=== PATIENT | male | born 1965 | race Caucasian/White ===

== ENCOUNTER → 2018-10-03 | Outpatient (CLI) | payer OTHER | LOC: FIMAGING 16:41 | PROVIDERS: ATTEND Internal Medicine Hematology & Oncology | DX: C79.51 Secondary malignant neoplasm of bone (principal); M89.8X8 Other specified disorders of bone, other site; C61 Malignant neoplasm of prostate ==

== ENCOUNTER 2018-10-17 09:44 | Day surgery (SDC) | payer OTHER ==
[2018-10-17] MEDS ORDERED: FLUMAZENIL 0.5 MG/5 ML MDV IVP PRN (09:54)
[2018-10-17] MEDS ORDERED: MIDAZOLAM 2 MG/2 ML VIAL IVP PRN (09:54)
[2018-10-17] MEDS ORDERED: fentaNYL 100 MCG/2 ML INJ IVP PRN (09:54)
[2018-10-17] MEDS ORDERED: NALOXONE HCL 0.4 MG/ML INJ IVP PRN (09:54)
[2018-10-17] MEDS ORDERED: NS 1,000 ML IV SCH (10:00)
[2018-10-17 10:37] LABS: INR 1.1 (0.83-1.16); PROTIME(PATIENT) 13.8 SEC (12.0-15.0)
[2018-10-17] MEDS ORDERED: FLUMAZENIL 0.5 MG/5 ML MDV IVP ONE (10:46)
[2018-10-17] MEDS ORDERED: NALOXONE HCL 0.4 MG/ML INJ ONE (10:46)
[2018-10-17] MEDS ORDERED: MIDAZOLAM 2 MG/2 ML VIAL ONE ×2 (10:47→11:57)
[2018-10-17] MEDS ORDERED: fentaNYL 100 MCG/2 ML INJ ONE (10:47)
[2018-10-17] MEDS ORDERED: LIDOCAINE 1% 300 MG/30 ML SDV ONE (11:43)
--- NOTE | 2018-10-17 12:29 | PDRADPRE ---
Radiology History & Physical Indication for procedure: cancer Home medications: Casodex (*) 50 mg PO DAILY 10/12/18 [Last Taken 10/16/18] Fish Oil 1,000 mg Softgel 1,000 mg PO DAILY 10/12/18 [Last Taken Unknown] Ibuprofen 400 mg PO PRN 10/12/18 [Last Taken Unknown] Allergies/Adverse Reactions: No Known Allergies Allergy (Unverified 10/12/18 18:51) Mental status: A&Ox3
--- NOTE | 2018-10-17 12:29 | PDRADPN ---
Radiology Procedure Note Date of Procedure: 10/17/18 Radiologist: Angela Quiroz Anesthesia: IV Sedation Pre-op Diagnosis: RP nodes Post-op Diagnosis: same Procedure: CT guided biopsy of left RP node Inf/Abcess present in the surg proc area at time of surgery?: No
--- NOTE | 2018-10-17 12:29 | PDPROPOC ---
Sedation Plan of Care ASA Classification: ASA 3 Mallampati Score: Class 2 Mallampati Reference Image:
[2018-10-17] MEDS ORDERED: ONDANSETRON 4 MG/2 ML VIAL IVP PRN (12:30)
[2018-10-17] MEDS ORDERED: ACETAMINOPHEN 325 MG TAB PO PRN (12:30)
[2018-10-17 13:32] VITALS: BP 120/88
== END 2018-10-17 13:34 | disposition home or self-care (01) ==
LOC: FIMAGING 09:44
PROVIDERS: ATTEND Radiology Diagnostic Radiology
PROC: BW201ZZ Computerized Tomography (CT Scan) of Abdomen using Low Osmolar Contrast (ICD-10-PCS; principal; 2018-10-17 12:39)
PROC: 0WBH3ZX Excision of Retroperitoneum, Percutaneous Approach, Diagnostic (ICD-10-PCS; principal; 2018-10-17 12:39)
DX: C77.2 Secondary and unspecified malignant neoplasm of intra-abdominal lymph nodes (principal); C61 Malignant neoplasm of prostate; C79.51 Secondary malignant neoplasm of bone
CPT/HCPCS: J2250; J2310; J3010

== ENCOUNTER 2018-11-02 19:17 | Inpatient (IN) | payer OTHER ==
--- NOTE | 2018-11-02 19:34 | EDPHY ---
H & P Stated Complaint: fever since yesterday- chemo IV last week Time Seen by Provider: 11/02/18 19:33 HPI/ROS: CHIEF COMPLAINT: Neutropenic fever HISTORY OF PRESENT ILLNESS: The patient is currently receiving chemotherapy for prostate cancer presents the ED with a 2 day history of fever to 101 degrees. The patient was noted to be neutropenic based upon laboratory testing performed yesterday. The patient denies any cough or congestion. He does have some urinary frequency he attributes to increased oral intake. He denies any abdominal pain, vomiting or rash. The patient has no complaints of acute pain. REVIEW OF SYSTEMS: A comprehensive 10 point review of systems is otherwise negative aside from elements mentioned in the history of present illness. Source: Patient Exam Limitations: No limitations - Personal History Current Tetanus/Diphtheria Vaccine: Yes Current Tetanus Diphtheria and Acellular Pertussis (TDAP): Yes - Medical/Surgical History Hx Asthma: No Hx Chronic Respiratory Disease: No Hx Diabetes: No Hx Cardiac Disease: No Hx Renal Disease: No Hx Cirrhosis: No Hx Alcoholism: No Hx HIV/AIDS: No Hx Splenectomy or Spleen Trauma: No Other PMH: prostate cancer - Social History Smoking Status: Never smoked - Physical Exam Exam: General Appearance: Alert, no distress Eyes: Pupils equal and round no pallor or injection ENT, Mouth: Mucous membranes moist Respiratory: There are no retractions, lungs are clear to auscultation Cardiovascular: Regular rate and rhythm Gastrointestinal: Abdomen is soft and nontender, no masses, bowel sounds normal Neurological: 5/5 strength noted all 4 extremities Skin: Warm and dry, no rashes Musculoskeletal: Neck is supple nontender Extremities: symmetrical, full range of motion Psychiatric: Patient is oriented X 3, there is no agitation Constitutional: Initial Vital Signs Temperature (C) 38.2 C 11/02/18 19:18 Heart Rate 93 11/02/18 19:18 Respiratory Rate 16 11/02/18 19:18 Blood Pressure 144/88 H 11/02/18 19:18 O2 Sat (%) 94 11/02/18 19:18 O2 Delivery Mode Room Air Allergies/Adverse Reactions: No Known Allergies Allergy (Verified 11/02/18 19:22) Home Medications: Medication Instructions Recorded NK [No Known Home Meds] 11/02/18 Medical Decision Making ED Course/Re-evaluation: Patient had an IV established. Screening lab studies and blood cultures have been obtained. Urinalysis has been ordered. I reviewed the patient's laboratory studies from yesterday which do demonstrate neutropenia. The patient does have a fever in the emergency department today. There are no obvious signs of a bacterial infection noted on exam. The patient has a reassuring lactic acid. The patient will be admitted to the hospital for neutropenic fever. The patient was given cefepime in the emergency department. Urinalysis is pending at this point time. Consultation is made with Dr. Clifford from the hospitalist service who will admit the patient this evening. Differential Diagnosis: Differential diagnosis considered includes neutropenic fever, viral syndrome, pneumonia, urinary tract infection - Data Points Laboratory Results: Laboratory Results 11/02/18 19:50 11/02/18 19:50 11/02/18 11/02/18 11/02/18 19:50 19:50 19:50 WBC REJ RBC TNP Hgb TNP Hct TNP MCV TNP MCH TNP MCHC TNP RDW TNP Plt Count TNP MPV TNP Neut % (Auto) TNP Lymph % (Auto) TNP [place] % (Auto) TNP Eos % (Auto) TNP Baso % (Auto) TNP Nucleat RBC Rel Count TNP Absolute Neuts (auto) TNP Absolute Lymphs (auto) TNP Absolute Monos (auto) TNP Absolute Eos (auto) TNP Absolute Basos (auto) TNP Absolute Nucleated RBC TNP Immature Gran % TNP Immature Gran # TNP VBG Lactic Acid 0.7 mmol/L mmol/L (0.7-2.1) Sodium 136 mEq/L mEq/L (135-145) Potassium 4.2 mEq/L mEq/L (3.5-5.2) Chloride 105 mEq/L mEq/L (97-110) Carbon Dioxide 22 mEq/l mEq/l (22-31) Anion Gap 9 mEq/L mEq/L (6-14) BUN 12 mg/dL mg/dL (7-23) Creatinine 0.8 mg/dL mg/dL (0.7-1.3) Estimated GFR > 60 Glucose 98 mg/dL mg/dL (70-100) Calcium 9.3 mg/dL mg/dL (8.5-10.4) Departure - Departure Disposition: [facility] Acute Clinical Impression: Neutropenic fever, Prostate cancer Condition: Good
[2018-11-02] MEDS ORDERED: CEFEPIME HCL 2 GM in NS 100 ML IV ONE (20:30)
[2018-11-02 20:53] LABS: PLATELET COUNT 192 10^3/uL (150-400)
[2018-11-02] MEDS ORDERED: ONDANSETRON 4 MG/2 ML VIAL IVP PRN (21:34)
[2018-11-02] MEDS ORDERED: ONDANSETRON DISINTEGRATING 4 MG TAB PO PRN (21:34)
[2018-11-03] MEDS ORDERED: NS 1,000 ML IV SCH (04:30)
[2018-11-03] MEDS: CEFEPIME HCL 2 GM in NS 100 ML IV SCH ×3 (04:41→20:19)
[2018-11-03] MEDS: ACETAMINOPHEN 325 MG TAB PO PRN ×2 (04:42→20:00)
--- NOTE | 2018-11-03 05:24 | GHP ---
[f rep st] HISTORY AND PHYSICAL DATE OF ADMISSION: 11/02/2018 SOURCE: The patient provides history, appears reliable. EMR was reviewed and case discussed with [facility] hospitalist. CHIEF COMPLAINT: Fever. HISTORY OF PRESENT ILLNESS: This is a very pleasant 52-year-old gentleman who goes by the name of Soraya monroy, with past medical history significant for prostate cancer. He is followed by Dr. Tirado and skyler gracia underwent his first of 5 chemo treatments approximately a week and half ago. He reports that Wed or the day before, he presented to the emergency department. He was experiencing fevers. The p atient denied any rashes, sores, sore throat, rhinorrhea, congestion, cough, shortness of breath, dys uria, hematuria, diarrhea, but he did note that he was experiencing a little bit of rectal discomfort and a minimal amount of blood when he wiped. The patient denies any known sick contacts. Given his elevated fever, he presented to the emergency department for further evaluation. The patient was st arted on cefepime in the emergency department, and blood cultures are pending. REVIEW OF SYSTEMS: Ten systems reviewed, negative, except as noted above. ALLERGIES: No known drug allergies. HOME MEDICATIONS: Multivitamin, Flexeril, chondroitin, chemotherapy every 3 weeks, including docetax el and androgen deprivation therapy with Lupron injections every 3 months ago. Bicalutamide was disc ontinued 11/01/2018. Calcium with vitamin D. PAST MEDICAL HISTORY: Significant for prostate cancer. PAST SURGICAL HISTORY: The patient denies. FAMILY HISTORY: Negative for prostate disease or cancer. Aunts with high blood pressure. No family members with diabetes. Father did have a history of IBS. SOCIAL HISTORY: The patient is . He does not drink or smoke. He does utilize some occasiona l CBD oil. CODE STATUS: Full. PHYSICAL EXAMINATION: VITAL SIGNS: Upon arrival to the emergency department, blood pressure is 144/ 88, heart rate 93, respiratory rate 16, O2 sat 96% on room air, and temperature 38.2. Current vitals available, blood pressure is 132/87, heart rate 93, respiratory rate 16, O2 sat 94% on room air, tem perature 37.8. GENERAL: No acute distress. Very pleasant adult gentleman who is resting quietly in bed. He is awake. Does appear fatigued. During the interview, the patient does become flushed and slightly diaphoretic, complaining of feeling hot, at which time, his temperature was taken and found to be 100.0 with a rise in heart rate into the 90s. HEAD: Normocephalic, atraumatic. EYES: Extra ocular muscles are grossly intact. Pupils equal, round, slightly decreased reactivity to light bilat erally, but symmetric. No scleral icterus or conjunctival injection. ENT: Mucous membranes are abimael st. No oropharyngeal erythema or exudates. Dentition is intact. NECK: Supple. Trachea midline. CV: Regular rate. Slightly tachycardic in the 90s. Irregular rhythm. No murmurs, rubs or gallops appreciated. ABDOMEN: Positive bowel sounds. Soft, nontender to palpation. No rebound, guarding. No masses appreciated. : No suprapubic tenderness to palpation. No Kieth catheter in place. No rmal external male genitalia. Rectal: The patient was reporting significant discomfort, asks for as sessment of any potential rectal lesions. Without any invasive evaluation, I did find that the patie nt did have a small to moderate-sized external hemorrhoid that did not have any surrounding erythema or evidence of hyperemia. MUSCULOSKELETAL: Strength intact. The patient sits up and moves all extr emities independently. Strength 5/5 grossly. NEURO: Grossly nonfocal. No facial drooping. Moves all extremities as noted above. PSYCH: Thought process, content, and questions are appropriate. Th e patient is quite pleasant and cooperative. The patient is awake, alert, and oriented x3. LABORATORY STUDIES: CBC from 11/01/2018, WBCs 0.75, H and H 13.8 and 40.3, MCV of 86.9, platelet cou nt is 188, neutrophil percent 10.7, lymphocyte percent 78.7. Repeat CBC in the emergency department, WBCs 0.61 with absolute neutrophil 0.01, H and H 13.8 and 41.7, platelet count is 192. Lactic acid 0.7. Chemistry: Sodium is 137, potassium 4.2, chloride is 102, CO2 is 27, BUN is 13, creatinine is 0.8, GFR greater than 60, glucose is 88, calcium is 9.4, total bili is 0.3, ALT is 31, AST is 28, alk phos is 263, total protein 6.7, albumin 3.7. Previous PSA screens 10/01/2018, was 228, and on 10/24, was 109.0. UA: Specific gravity 1.003, pH of 7.0, all negative. ASSESSMENT AND PLAN: A pleasant 52-year-old gentleman with a history of prostate cancer, undergoing chemotherapy, followed by Dr. Tirado, who presents to the emergency department with complaints of 24 h ours of fever. 1. Neutropenic fever: The patient has been placed on neutropenic precautions. Blood cultures are p ending. The patient was started on cefepime per neutropenic fever protocol. The patient continues t o spike temperatures. Oncology consultation this morning as per day team. By history, no suggestion of a source for the patient's fever at this time. He does complain of some rectal discomfort with b owel movements and sitting. He does have a small external hemorrhoid present. No evidence of surrou nding edema or potential perirectal abscess, but we will need to monitor closely. Preparation-H has been ordered p.r.n. 2. Fluid, electrolytes, nutrition: The patient has been tolerating oral hydration, but complains th at he is feeling a little bit dry. We will add a liter of fluid. Blood pressures are adequate at th is time. Electrolytes will be monitored and replaced if needed. 3. Code status: Full. 4. Disposition: The patient admitted to inpatient status on the medical/surgical floor. Anticipati ng greater than 2-midnight stay pending blood cultures and treatment response. /[id number]/MODL
[2018-11-03 05:26] LABS: PLATELET COUNT 195 10^3/uL (150-400)
[2018-11-03] MEDS: ENOXAPARIN 40 MG/0.4 ML SYR SC SCH (09:41)
--- NOTE | 2018-11-03 11:29 | ASMTCMCOM ---
CM Note CM Note Notes: Patient admitted with neutropenic fever in setting of first chemo tx 9 days ago. Hx of prostate cancer, followed by Dr Tirado. He lives with his and is otherwise independent. No therapies have been ordered, and I anticipate d/c home with no needs. CM available if this changes. Date Signed: 11/03/2018 11:28 AM Electronically Signed By:Sonia Galvan RN
[2018-11-03] MEDS: POLYETHYLENE GLYCOL 3350 17 GM PKT PO PRN (12:47)
[2018-11-03] MEDS: FILGRASTIM-SNDZ 480 MCG/0.8 ML SYR SC SCH (12:48)
--- NOTE | 2018-11-03 13:06 | GCON ---
[f rep st] CONSULTATION NEW PATIENT MEDICAL ONCOLOGY CONSULTATION REFERRING PHYSICIAN: Sally Carvalho MD PRIMARY ONCOLOGIST: Dr. Lexy Tirado REASON FOR CONSULTATION: Patient with metastatic prostate cancer currently on chemotherapy, admitted with neutropenic fever. HISTORY OF PRESENT ILLNESS: The patient is a very pleasant 52-year-old gentleman who was diagnosed with de Naheed metastatic prostate cancer on 2018. The patient reports he was having some right hip pain, which led to an MRI that showed significant bony metastasis, as well as retroperitoneal lymphadenopathy and abnormal prostate. He had a biopsy of a retroperitoneal lymph node showing metastatic prostate adenocarcinoma. PSA of 109 on 10/24/2018. Subsequently, the patient has been diagnosed with widespread disease, primarily bony involvement. He was started on LHRH agonist, as well as docetaxel on 10/25. Patient was seen in clinic on 11/01/2018, noted to have an ANC of 88, was not started on prophylactic antibiotics, but since that time, he has noted fevers up to 101. The patient called me last night to discuss the fevers. He reported some chills, but denied any infectious symptoms, specifically no mouth sores, no cough, no shortness of breath, no abdominal pain, diarrhea, or dysuria. I instructed him to come into the ER for evaluation. In the ER, he was noted to be neutropenic with an ANC of 0. He was started on cefepime, IV fluids, and admitted to the hospital. Patient has had blood cultures, which are pending, urinalysis, which was negative. CBC shows no anemia or thrombocytopenia. Creatinine and electrolytes have been unremarkable. I will note that the patient did not receive growth factor with his most recent chemotherapy. REVIEW OF SYSTEMS: Otherwise, the patient reports chronic right hip pain, which is somewhat improved. He again denies infectious symptoms today and reports no other pain. He does report feeling less weak than he did yesterday. PAST MEDICAL HISTORY: None additional. HOME MEDICATIONS: Have been reviewed. PAST SURGICAL HISTORY: Denies. FAMILY HISTORY: Negative for any cancer. He is currently pending genetic counseling. SOCIAL HISTORY: . He has an [id number] son. He does not drink or smoke. PHYSICAL EXAM: VITAL SIGNS: Today shows blood pressure 120/79, heart rate 79, O2 saturation 95% on room air with respiratory rate of 16. His temp is currently 36 8. GENERAL: A 52-year-old gentleman, looks his stated age, not in acute distress. HEENT: Anicteric sclerae. Oropharynx is clear. NECK: Supple. HEART: Regular rate and rhythm. LUNGS: Clear to auscultation bilaterally. ABDOMEN: Soft. No enlarged liver or spleen. LOWER EXTREMITIES: No edema. No focal bony tenderness. LABORATORY DATA: Labs today again show an ANC of 0. Creatinine is 0.8. ASSESSMENT AND PLAN: A 52-year-old gentleman with de Naheed stage IV metastatic prostate cancer. Based on imaging I have reviewed today, he has diffuse bony metastatic disease. The patient was admitted with neutropenic fever, status post first cycle of Lupron and docetaxel given on 10/25/2018. He did not receive growth factor. Patient is doing well today on intravenous antibiotics. We will continue cefepime. I am going to add G-CSF with Zarxio daily hoping to expedite the rise in white blood cell count so we can transition him to oral antibiotics. His blood cultures are currently pending, but no etiology for fever has been discovered at this time. He denies any new pain. Notably, patient is pending genetic counseling to evaluate for underlying germ line mutation. Dr. Tirado is also planning bone health agent sooner than later despite lack of data with hormone sensitive disease. Dr. Tirado is worried about impending fracture, especially in the hip. Fortunately, patient is not having any pain at this time. We will continue to follow throughout this hospital stay. More than 30 minutes was spent with patient, more than 50% of time counseling, coordinating care. Will discuss with Dr. Carvalho. /[id number]/MODL MTDD
[2018-11-03] MEDS ORDERED: LORazepam 0.5 MG TAB PO PRN (16:38)
--- NOTE | 2018-11-03 16:51 | HOSPPROG ---
Hospitalist Progress Note Assessment/Plan: * Neutropenic fever -IV Cefpime -G-CSF per oncology * Metastatic prostate cancer -d/w Dr. Reyes - oncology to consult * Hip met -at risk for pathologic fracture - currently no pain Subjective: No new complaints Objective: Vital Signs Temp Pulse Resp BP Pulse Ox 37.3 C 89 16 148/92 H 96 11/03/18 15:48 11/03/18 15:48 11/03/18 15:48 11/03/18 15:48 11/03/18 15:48 Laboratory Results 11/03/18 05:04 11/03/18 05:04 11/02/18 11/03/18 11/04/18 05:59 05:59 05:59 Intake Total 350 Balance 350 - Physical Exam Constitutional: no apparent distress, appears nourished, not in pain Cardiovascular: regular rate and rhythym, no murmur, rub, or gallop Respiratory: no respiratory distress, no rales or rhonchi, clear to auscultation Gastrointestinal: normoactive bowel sounds, soft, non-tender abdomen, no palpable masses Skin: no rashes or abrasions, no fluctuance, no induration Neurologic: AAOx3, sensation intact bilaterally Psychiatric: interacting appropriately, not anxious, not encephalopathic, thought process linear ICD10 Worksheet Patient Problems: Problems Problem Status Onset Neutropenic fever Acute Prostate cancer Acute
--- NOTE | 2018-11-03 18:17 | PDMN ---
Medical Necessity Medical necessity: Change to inpt on 11/03/18, meets inpt criteria per MD order and Medical Oncology GRG, 52 y/o w/prostate cancer, undergoing chemo admitted w/ neutropenic fever, ANC of 0 in ED, WBC's 0.61 upon admission, started on cefepime per neutropenic fever protocol, IVF, Onc consult: imaging shows diffuse bony metastatic disease, anticipate>2MN for ongoing management of above.
[2018-11-03] MEDS: PREPARATION H 51 GM CRTUBE PR PRN (19:59)
[2018-11-04] MEDS: ACETAMINOPHEN 325 MG TAB PO PRN ×2 (01:18→20:01)
[2018-11-04] MEDS: CEFEPIME HCL 2 GM in NS 100 ML IV SCH ×3 (04:51→20:00)
[2018-11-04] MEDS: traMADol 50 MG TAB PO PRN ×2 (05:23→13:37)
[2018-11-04 05:25] LABS: PLATELET COUNT 168 10^3/uL (150-400)
[2018-11-04] MEDS: ENOXAPARIN 40 MG/0.4 ML SYR SC SCH (09:37)
[2018-11-04] MEDS: POLYETHYLENE GLYCOL 3350 17 GM PKT PO PRN (09:37)
[2018-11-04] MEDS: PREPARATION H 51 GM CRTUBE PR PRN (09:39)
--- NOTE | 2018-11-04 11:37 | SOAPPROG ---
SOAP Progress Note Assessment/Plan: Assessment/Plan: 52 yo w de yair metastatic prostate cancer admitted w neutropenic fever s/p C1 Lupron/docetaxel 10/25/2018 1. Neutropenic fever - afebrile yesterday and no fever today infectious w/u negative thus far Blood cultures negative ANC still 0 but monocytes increasing so likely myelosuppression recovering Cont IV abx and observation for now If afebrile tomorrow and ANC improving, could possibly discharge 2. Stage IV prostate ca - C1 Lupron + taxotere 10/25 will need growth factor added to regimen genetic testing pending 11/04/18 11:33 11/04/18 11:34 Subjective: No acute events some bone pain from growth factor feeling better Objective: Vital Signs Temp Pulse Resp BP Pulse Ox 36.8 C 88 16 146/88 H 93 11/04/18 07:42 11/04/18 07:42 11/04/18 07:42 11/04/18 07:42 11/04/18 07:42 Laboratory Results 11/04/18 05:15 11/03/18 05:04 11/03/18 11/04/18 11/05/18 05:59 05:59 05:59 Intake Total 350 2900 400 Balance 350 2900 400 Gen - NAD HEENT - anicteric, OP clear CV - RRR Chest - CTAB abd -spft, NT, BS+ Ext - no rash or edema ICD10 Worksheet Patient Problems: Problems Problem Status Onset Neutropenic fever Acute Prostate cancer Acute
[2018-11-04] MEDS: FILGRASTIM-SNDZ 480 MCG/0.8 ML SYR SC SCH (13:20)
--- NOTE | 2018-11-04 13:40 | HOSPPROG ---
Hospitalist Progress Note Assessment/Plan: 52 yo M w metastatic prostate CA here w neutropenic fever neutropenic fever: afebrile cx data neg continue abx add'l day -G-CSF per oncology Metastatic prostate cancer -d/w Dr. Hernandez - oncology to consult Hip met -at risk for pathologic fracture - currently no pain proph: LMWH if staying dispo: inpt Subjective: case d/w dr hernandez. afebrile Objective: Vital Signs Temp Pulse Resp BP Pulse Ox 36.9 C 79 16 141/97 H 96 11/04/18 11:35 11/04/18 11:35 11/04/18 11:35 11/04/18 11:35 11/04/18 11:35 Laboratory Results 11/04/18 05:15 11/03/18 05:04 11/03/18 11/04/18 11/05/18 05:59 05:59 05:59 Intake Total 350 2900 400 Balance 350 2900 400 - Physical Exam Constitutional: no apparent distress, appears nourished Eyes: PERRL, anicteric sclera Ears, Nose, Mouth, Throat: moist mucous membranes, hearing normal Cardiovascular: regular rate and rhythym, no murmur, rub, or gallop, No tachycardia Respiratory: no respiratory distress, no rales or rhonchi Gastrointestinal: normoactive bowel sounds, soft, non-tender abdomen Genitourinary: no bladder fullness, No riley in urethra Skin: warm, normal color Musculoskeletal: full muscle strength Neurologic: AAOx3 ICD10 Worksheet Patient Problems: Problems Problem Status Onset Neutropenic fever Acute Prostate cancer Acute
--- NOTE | 2018-11-04 15:26 | ASMTCMCOM ---
CM Note CM Note Notes: Patient case discussed in clinical rounds. Patient seen by Oncology for metastatic prostate cancer, admitted here for neutropenic fever. Patient to possibly discharge tomorrow if afebrile and ANC improving. Palliative is watching. CM to follow. D/C Plan: independent Date Signed: 11/04/2018 03:26 PM Electronically Signed By:Karlene Luna
[2018-11-04] MEDS ORDERED: FAMOTIDINE 20 MG TAB PO PRN (18:23)
[2018-11-05] MEDS: CEFEPIME HCL 2 GM in NS 100 ML IV SCH (05:25)
[2018-11-05 08:37] VITALS: BP 123/80
[2018-11-05] MEDS: ENOXAPARIN 40 MG/0.4 ML SYR SC SCH (10:17)
[2018-11-05] MEDS: POLYETHYLENE GLYCOL 3350 17 GM PKT PO PRN (10:17)
[2018-11-05 10:23] LABS: PLATELET COUNT 172 10^3/uL (150-400)
--- NOTE | 2018-11-05 11:19 | SOAPPROG ---
SOAP Progress Note Assessment/Plan: Assessment: 1. Metastatic prostate cancer 2. Febrile neutropenia due to taxotere ANC has recovered. Plan: - d/c to home - no need for abx or zarxio - f/u with Dr. Tirado on 11/15 for cycle 2 as previously arranged - call clinic immediately with fever >100.7 - will add Neulasta on next cycle to prevent prolonged neutropenia d/w dr tavarez 25 min spent w/ pt and in coordination of care. 11/05/18 11:18 Subjective: feeling well. Objective: exam well appearing, NAD Lungs CTAB CV RRR no mGR ABd: +BS NT ND Ext: no edema Vital Signs Temp Pulse Resp BP Pulse Ox 36.8 C 70 18 123/80 H 93 11/05/18 08:36 11/05/18 08:36 11/05/18 08:36 11/05/18 08:36 11/05/18 08:36 Laboratory Results 11/05/18 10:15 11/03/18 05:04 11/04/18 11/05/18 11/06/18 05:59 05:59 05:59 Intake Total 2900 2025 Balance 2900 202 ICD10 Worksheet Patient Problems: Problems Problem Status Onset Neutropenic fever Acute Prostate cancer Acute
--- NOTE | 2018-11-05 12:12 | GDS ---
[f rep st] DISCHARGE SUMMARY DISCHARGE DIAGNOSES: 1. Prostate cancer. 2. Chemotherapy-induced neutropenia. Please see admission history and physical by Dr. Elicia Gardner. The patient presented with fevers wit hout any localized infectious symptoms. He had recently received chemotherapy the prior week. He wa s admitted to the hospital, found to be neutropenic, and treated with cefepime. Fever workup was neg ative. He received a dose of stimulating factor and his ANC is 1300. He is discharged home today, i nstructed to return to hospital or to return to Oncology Clinic or call for fever greater than 100.7 or infectious symptoms. He is not prescribed antibiotics. /[id number]/MODL
--- NOTE | 2018-11-05 16:32 | ASDISCHSUM ---
Discharge Information Plan Status:Home with No Needs Medically Cleared to Leave:11/05/2018 Discharge Date:11/05/2018 12:52 PM CM D/C Disposition:Home, Routine, Self-Care ADT D/C Disposition:Home, Routine, Self-Care Projected Discharge Date:11/05/2018 12:52 PM Transportation at D/C:Family Discharge Delay Reason: Follow-Up Date:11/05/2018 12:52 PM Discharge Slot: Final Diagnosis: Placement Information Patient Contact Information Contact Name:CHEL Relationship: Address:[address] Work Phone: City:[place] Alternate Phone: [facility]/Zip Code:[place] [address] Email: Financial Information Financial Class:HMO and PPO Plans Primary Plan Desc:[facility] Primary Plan Number:[id number] Secondary Plan Desc: Secondary Plan Number: Assessment Information LACE LACE Length of stay for Answers: 3 days current admission Acuity / Level of Answers: Yes Care: Did the patient have an inpatient admission? Comorbidities - select Answers: Any tumor (including all that apply lymphoma or leukemia) Opioid dependence / Chronic pain # of Emergency department Answers: 1-2 visits in the last 6 months Score: 13 Date Signed: 11/05/2018 04:29 PM Electronically Signed By:CHUCK Mosqueda [facility] CM Progress Note CM Note CM Note Notes: Patient admitted with neutropenic fever in setting of first chemo tx 9 days ago. Hx of prostate cancer, followed by Dr Tirado. He lives with his and is otherwise independent. No therapies have been ordered, and I anticipate d/c home with no needs. CM available if this changes. Date Signed: 11/03/2018 11:28 AM Electronically Signed By:Sonia Galvan RN [facility] CM Progress Note CM Note CM Note Notes: Patient case discussed in clinical rounds. Patient seen by Oncology for metastatic prostate cancer, admitted here for neutropenic fever. Patient to possibly discharge tomorrow if afebrile and ANC improving. Palliative is watching. CM to follow. D/C Plan: independent Date Signed: 11/04/2018 03:26 PM Electronically Signed By:Karlene Luna Case Management Discharge Plan Note Case Management Discharge Discharge Order Complete? Answers: Yes Patient to Obtain Answers: via Family Medications Transportation Arranged Answers: Family/Friends Discharge Comments Notes: Pt discharged home today with his . He had no CM needs and will follow up with his oncologist. Date Signed: 11/05/2018 04:31 PM Electronically Signed By:CHUCK Mosqueda Intervention Information
== END 2018-11-05 12:52 | disposition home or self-care (01) | DRG 809 ==
LOC: F1N 21:29
PROVIDERS: ADMIT Internal Medicine; ATTEND Internal Medicine
DX: D70.1 Agranulocytosis secondary to cancer chemotherapy (principal); R50.81 Fever presenting with conditions classified elsewhere; T45.1X5A Adverse effect of antineoplastic and immunosuppressive drugs, initial encounter; C61 Malignant neoplasm of prostate; C79.51 Secondary malignant neoplasm of bone
CPT/HCPCS: 96365; J0692; J1650; Q5101

== ENCOUNTER → 2018-12-29 | Outpatient (CLI) | payer OTHER | LOC: FIMAGING 15:37 ==